=== PATIENT | female | born 1955 | race Caucasian/White ===

== ENCOUNTER 2020-11-18 16:30 | Outpatient (CLI) | payer BC, SELFPAY ==
--- NOTE | ~2020-11-18 | XR_ITS ---
XR sacrum coccyx min 2V DATE: 11/18/2020 17:10 INDICATION: Checking position of device placement in one year ago TECHNIQUE: AP, angled AP and lateral views COMPARISON: None FINDINGS: Right gluteal area Repeat back with lead extending across the midline through the left S3 neural foramen. No fracture or bone destruction of the sacrum. Normal alignment at the pubic symphysis and sacroiliac joints. Mild bilateral hip osteoarthritis. IMPRESSION: Lead through left S3 neural foramen Reviewed, dictated and finalized at location A. [employer]
== END 2020-11-18 16:31 | disposition home or self-care (01) ==
LOC: ANHOBOP 16:41 → ANHIMG 16:46
PROVIDERS: PCP Internal Medicine; Visit Provider Urology
DX: N32.81 Overactive bladder (principal); Z96.9 Presence of functional implant, unspecified
CPT/HCPCS: 72220